=== PATIENT | male | born 1980 | race Two or more races ===

== ENCOUNTER 2022-09-05 17:01 | Emergency (ER) | payer OTHER ==
[~2022-09-05] VITALS: Ht 177.8 cm; Wt 86.4 kg
[2022-09-05] MEDS ORDERED: IBUPROFEN 800 MG TAB PO ONE (23:00)
[2022-09-06 00:10] VITALS: BP 150/90
[2022-09-06] MEDS ORDERED: IBUP800T27 PO (00:24)
== END 2022-09-06 00:49 | disposition home or self-care (01) ==
LOC: EDBD 17:01 → ER 17:05
DX: S16.1XXA Strain of muscle, fascia and tendon at neck level, initial encounter (principal); Z79.1 Long term (current) use of non-steroidal anti-inflammatories (NSAID); V43.52XA Car driver injured in collision with other type car in traffic accident, initial encounter; Y93.89 Activity, other specified; Y92.410 Unspecified street and highway as the place of occurrence of the external cause; Y99.8 Other external cause status
CPT/HCPCS: 72040